=== PATIENT | female | born 1970 | race Caucasian/White ===

== ENCOUNTER 2023-04-28 15:26 | Emergency (ER) | payer OTHER ==
[~2023-04-28] VITALS: Ht 165.1 cm; Wt 69.0 kg
[2023-04-28 15:45] VITALS: BP 101/62; PULSE 71; RESP 16; TEMP 98.3; O2SAT 100
== END 2023-04-28 21:29 | disposition left against medical advice (07) ==
LOC: ER 15:26
DX: R68.89 Other general symptoms and signs (principal); Z53.21 Procedure and treatment not carried out due to patient leaving prior to being seen by health care provider
CPT/HCPCS: 99281